=== PATIENT | male | born 1980 | race African-American/Black ===

== ENCOUNTER 2016-11-18 23:47 | Emergency (ER) | payer MEDICAID ==
[~2016-11-18] VITALS: Ht 177.8 cm; Wt 80.0 kg
[2016-11-19] MEDS ORDERED: ONDANSETRON 4MG ODT PO STA (08:29)
[2016-11-19] MEDS ORDERED: DICYCLOMINE 10 MG/5 ML ORAL SYR PO STA (08:29)
[2016-11-19 08:52] LABS: BASOPHILS % 0.2 % (0.0-2.0); HEMATOCRIT. 47.1 % (42.0-52.0); HEMOGLOBIN. 15.9 g/dL (14.0-18.0); LYMPHOCYTES % 10.1 % (20.0-50.0); MEAN CORPUSCULAR HEMOGLOBIN 28.9 pg (28.0-32.0); MEAN CORPUSCULAR VOLUME 85.5 fL (80.0-94.0); MEAN PLATELET VOLUME 9.2 fl (7.4-10.4); MONOCYTES % 2.5 % (2.0-8.0); NEUTROPHILS % 87.2 % (40.0-76.0); PLATELET 184 x1000/uL (130-400); RED BLOOD CELL COUNT 5.51 mill/uL (4.7-6.1); RED CELL DISTRIBUTION WIDTH 13.7 % (11.6-14.6)
[2016-11-19 08:59] LABS: CHLORIDE 101 mEq/L (98-107)
[2016-11-19 09:00] LABS: INR 1.1; PROTHROMBIN TIME 11.1 sec
[2016-11-19 09:09] LABS: CARBON DIOXIDE 11 mEq/L (21-32)
[2016-11-19 09:41] LABS: CLARITY URINE CLEAR (CLEAR); COLOR URINE YELLOW (YELLOW); GLUCOSE URINE 3+ (NEGATIVE); KETONES URINE 4+ (NEGATIVE); LEUKOCYTE ESTERASE URINE NEGATIVE (NEGATIVE); NITRITE URINE NEGATIVE (NEGATIVE); OCCULT BLOOD URINE 2+ (NEGATIVE); PROTEIN URINE 1+ (NEGATIVE); SPECIFIC GRAVITY URINE 1.029 (1.005-1.030); UROBILINOGEN URINE 0.2 E.U./dL (0.2-1.0)
[2016-11-19 10:00] VITALS: BP 124/88
[2016-11-19] MEDS ORDERED: VISCOUS LIDOCAINE 2% 15 ML UDC PO STA (10:07)
[2016-11-19] MEDS ORDERED: MAGNESIUM/ALUMINUM HYDROXIDE/SIMETHICONE 30ML UDC PO ONE (10:15)
[2016-11-19] MEDS ORDERED: METOCLOPRAMIDE HCL 10MG TABLET PO ONE (10:45)
== END 2016-11-19 11:36 | disposition home or self-care (01) ==
LOC: ER 23:51
DX: R10.9 Unspecified abdominal pain (principal); E11.9 Type 2 diabetes mellitus without complications; J45.909 Unspecified asthma, uncomplicated; R11.2 Nausea with vomiting, unspecified
CPT/HCPCS: 36415; 80053; 81001; 83690; 85025; 85610; 99284; Q0162; J8597

== ENCOUNTER 2018-03-19 04:21 | Inpatient (IN) | payer MEDICAID ==
[2018-03-19] VITALS (13 sets, daily range): BP systolic 93–140; BP diastolic 59–93
[~2018-03-19] VITALS: Ht 180.3 cm; Wt 68.1 kg
[2018-03-19] MEDS ORDERED: SODIUM CHLORIDE 0.9% 1,000 ML IV ONE ×2 (04:43→07:00)
[2018-03-19] MEDS ORDERED: ONDANSETRON HCL 4MG/2ML INJ IV ONE ×3 (04:45→07:15)
[2018-03-19 05:51] LABS: BASOPHILS % 0.2 % (0.0-2.0); HEMATOCRIT. 53.6 % (42.0-52.0); HEMOGLOBIN. 17.4 g/dL (14.0-18.0); LYMPHOCYTES % 11.3 % (20.0-50.0); MEAN CORPUSCULAR HEMOGLOBIN 28.5 pg (28.0-32.0); MEAN CORPUSCULAR VOLUME 87.8 fL (80.0-94.0); NEUTROPHILS % 86.5 % (40.0-76.0); PLATELET 158 x1000/uL (130-400); RED BLOOD CELL COUNT 6.11 mill/uL (4.7-6.1); RED CELL DISTRIBUTION WIDTH 14.6 % (11.6-14.6)
[2018-03-19 06:24] LABS: CHLORIDE 98 mEq/L (98-107)
[2018-03-19 06:28] LABS: AMYLASE 94 IU/L (25-115)
[2018-03-19] MEDS ORDERED: INSULIN REGULAR (DRIP) 100 UNITS in SODIUM CHLORIDE 0.9% 99 ML IV SCH (07:00)
[2018-03-19] MEDS ORDERED: SODIUM CHLORIDE 0.9% 1,000 ML IV SCH (07:38)
[2018-03-19 07:43] LABS: CLARITY URINE CLEAR (CLEAR); COLOR URINE YELLOW (YELLOW); KETONES URINE 4+ (NEGATIVE); LEUKOCYTE ESTERASE URINE NEGATIVE (NEGATIVE); NITRITE URINE NEGATIVE (NEGATIVE); OCCULT BLOOD URINE 2+ (NEGATIVE); PROTEIN URINE 1+ (NEGATIVE); SPECIFIC GRAVITY URINE 1.029 (1.005-1.030); UROBILINOGEN URINE 0.2 E.U./dL (0.2-1.0)
[2018-03-19] MEDS ORDERED: LORAZEPAM 0.5MG TABLET PO PRN (07:45)
[2018-03-19] MEDS ORDERED: CLONIDINE 0.1MG TABLET PO PRN (07:45)
[2018-03-19] MEDS ORDERED: ACETAMINOPHEN 325MG TABLET PO PRN (07:45)
[2018-03-19] MEDS ORDERED: IPRATROPIUM/ALBUTEROL 0.5-3(2.5)MG/3ML NEB INH PRN (07:45)
[2018-03-19] MEDS ORDERED: MAGNESIUM/ALUMINUM HYDROXIDE/SIMETHICONE 30ML UDC PO PRN (07:45)
[2018-03-19] MEDS ORDERED: GUAIFENESIN 200MG/10ML SUGAR FREE UDC PO PRN (07:45)
[2018-03-19] MEDS ORDERED: DOCUSATE SODIUM 100MG CAPSULE PO PRN (07:45)
[2018-03-19] MEDS ORDERED: ONDANSETRON HCL 4MG/2ML INJ IV PRN (07:45)
[2018-03-19 11:13] LABS: CHLORIDE 102 mEq/L (98-107)
[2018-03-19] MEDS ORDERED: KETOROLAC 15MG/ML VIAL IV PRN (16:30)
[2018-03-19] MEDS ORDERED: INSULIN REGULAR (DRIP) 100 UNITS in SODIUM CHLORIDE 0.9% 100 ML IV SCH (20:00)
[2018-03-19] MEDS: BLOOD SUGAR DIAGNOSTIC STRIP TEST SCH ×4 (20:00→23:55)
[2018-03-19] MEDS ORDERED: DEXTROSE 50% WATER 50ML SYRINGE IV PRN ×2 (20:00)
[2018-03-19] MEDS ORDERED: ZOLPIDEM TARTRATE 5MG TABLET PO PRN (21:00)
[2018-03-19] MEDS ORDERED: NA PHOS,M-B/NA PHOS,DI-BA ENEMA 118ML PR PRN (21:00)
[2018-03-19] MEDS: PANTOPRAZOLE SODIUM 40 MG/VIAL IV SCH (21:57)
[2018-03-19 23:15] LABS: CHLORIDE 109 mEq/L (98-107)
[2018-03-19 23:22] LABS: PHOSPHORUS 1.9 mg/dL (2.5-4.9)
[2018-03-20] VITALS (20 sets, daily range): BP systolic 103–124; BP diastolic 59–79
[2018-03-20] MEDS: BLOOD SUGAR DIAGNOSTIC STRIP TEST SCH ×9 (00:09→08:00)
[2018-03-20] MEDS: DEXT 5%/0.9% NACL KCL 20MEQ/L 1,000 ML IV SCH ×2 (00:15→03:40)
[2018-03-20] MEDS ORDERED: SODIUM PHOS,M-BASIC-D-BASIC 15 MM in DEXT 5% WATER 245 ML IV NR (01:00)
[2018-03-20] MEDS: PANTOPRAZOLE SODIUM 40 MG/VIAL IV SCH (08:45)
[2018-03-20] MEDS ORDERED: INSULIN LISPRO 100 UNITS/ML SUBCUT SCH (09:45)
[2018-03-20] MEDS ORDERED: INSULIN GLARGINE UD 100 UNITS/ML SYR SUBCUT SCH (10:00)
[2018-03-20 10:54] LABS: *AMPHETAMINES SCREEN URINE PRESUMTIVE POSITIVE (NEGATIVE); *BARBITURATES SCREEN URINE NEGATIVE (NEGATIVE); *COCAINE SCREEN URINE NEGATIVE (NEGATIVE); CANNABINOID URINE SCREEN NEGATIVE (NEGATIVE); METHADONE URINE SCREEN NEGATIVE (NEGATIVE)
[2018-03-20 10:56] LABS: *BENZODIAZEPINES SCREEN URINE NEGATIVE (NEGATIVE)
[2018-03-20 10:57] LABS: PHENCYCLIDINE URINE SCREEN NEGATIVE (NEGATIVE)
[2018-03-20 11:08] LABS: OPIATES URINE SCREEN NEGATIVE (NEGATIVE)
== END 2018-03-20 10:30 | disposition left against medical advice (07) | DRG 420 ==
LOC: ER 04:21 → EDBEDREQTM 06:41 → EDBEDREQSVC 06:41 → EDBEDREQ 06:41 → CANRESERV 06:56 → ENRESERV 06:56 → EDBEDREQTM 06:58 → EDBEDREQSVC 06:58 → EDBEDREQ 06:59 → CVICU 07:00 → CANRESERV 12:22 → ENRESERV 12:22 → CANRESERV 15:22 → ENRESERV 15:22
PROVIDERS: ADMIT Internal Medicine; ATTEND Internal Medicine
DX: E11.10 Type 2 diabetes mellitus with ketoacidosis without coma (principal); L97.818 Non-pressure chronic ulcer of other part of right lower leg with other specified severity; D72.829 Elevated white blood cell count, unspecified; F31.9 Bipolar disorder, unspecified; Z53.21 Procedure and treatment not carried out due to patient leaving prior to being seen by health care provider; J45.909 Unspecified asthma, uncomplicated; R32 Unspecified urinary incontinence; X58.XXXA Exposure to other specified factors, initial encounter; Y93.51 Activity, roller skating (inline) and skateboarding; Y92.89 Other specified places as the place of occurrence of the external cause; Y99.8 Other external cause status; Z83.3 Family history of diabetes mellitus; Z91.11 Patient's noncompliance with dietary regimen; Z91.19 Patient's noncompliance with other medical treatment and regimen; Z59.0 Homelessness
CPT/HCPCS: 36415; 71045; 80048; 80305; 82010; 82150; 82962; 83036; 84100; 93005; 96361; 96374; 96375; 96376; 99285; C9113; J1815; J2405; J3490; J7030; J7050; J7060

== ENCOUNTER 2018-03-22 16:00 | Inpatient (IN) | payer MEDICAID ==
[~2018-03-22] VITALS: Ht 180.3 cm; Wt 60.8 kg
[2018-03-22] MEDS ORDERED: ONDANSETRON HCL 4MG/2ML INJ IV STA (16:31)
[2018-03-22] MEDS ORDERED: IPRATROPIUM BROMIDE (0.02%) 0.5MG/2.5ML NEB HHN STA (16:31)
[2018-03-22] MEDS ORDERED: ALBUTEROL (0.083%) 2.5MG/3ML NEB HHN STA (16:31)
[2018-03-22] MEDS ORDERED: SODIUM CHLORIDE 0.9% 1,000 ML IV ONE (16:31)
[2018-03-22] MEDS ORDERED: ASPIRIN 81MG TABLET PO ONE (16:45)
[2018-03-22] MEDS ORDERED: LORAZEPAM 2MG/ML CPJ IM ONE (17:30)
[2018-03-22 17:49] LABS: BASOPHILS % 0.2 % (0.0-2.0); HEMATOCRIT. 52.1 % (42.0-52.0); HEMOGLOBIN. 16.6 g/dL (14.0-18.0); LYMPHOCYTES % 13.5 % (20.0-50.0); MEAN CORPUSCULAR HEMOGLOBIN 27.9 pg (28.0-32.0); MEAN CORPUSCULAR VOLUME 87.5 fL (80.0-94.0); MONOCYTES % 3.5 % (2.0-8.0); NEUTROPHILS % 82.8 % (40.0-76.0); PLATELET 255 x1000/uL (130-400); RED BLOOD CELL COUNT 5.96 mill/uL (4.7-6.1); RED CELL DISTRIBUTION WIDTH 15.4 % (11.6-14.6)
[2018-03-22 17:50] LABS: INR 1.1; PROTHROMBIN TIME 10.7 sec (9.1-11.1)
[2018-03-22 17:55] LABS: CHLORIDE 95 mEq/L (98-107)
[2018-03-22] MEDS ORDERED: ONDANSETRON HCL 4MG/2ML INJ IV ONE (18:30)
[2018-03-22] MEDS ORDERED: INSULIN REGULAR (DRIP) 100 UNITS in SODIUM CHLORIDE 0.9% 100 ML IV ONE (18:45)
[2018-03-22] MEDS ORDERED: PANTOPRAZOLE SODIUM 40 MG/VIAL IV ONE (19:00)
[2018-03-22 19:29] LABS: BETA HYDROXYBUTYRATE 14.4 mMol/L (0.0-0.3)
[2018-03-22] MEDS ORDERED: INSULIN REGULAR (DRIP) 100 UNITS in SODIUM CHLORIDE 0.9% 100 ML IV SCH (19:45)
[2018-03-22] MEDS ORDERED: DOCUSATE SODIUM 100MG CAPSULE PO PRN (21:15)
[2018-03-22] MEDS ORDERED: DEXTROSE 50% WATER 50ML SYRINGE IV PRN ×2 (21:15)
[2018-03-22] MEDS ORDERED: ONDANSETRON HCL 4MG/2ML INJ IV PRN ×2 (21:15)
[2018-03-22] MEDS ORDERED: NA PHOS,M-B/NA PHOS,DI-BA ENEMA 118ML PR PRN (21:15)
[2018-03-22] MEDS ORDERED: METOCLOPRAMIDE HCL 5MG TABLET PO PRN (21:15)
[2018-03-22] MEDS ORDERED: GUAIFENESIN 200MG/10ML SUGAR FREE UDC PO PRN (21:15)
[2018-03-22] MEDS ORDERED: HYDROCODONE/ACETAMINOPHEN 10/325MG TABLET PO PRN (21:15)
[2018-03-22] MEDS ORDERED: ACETAMINOPHEN 650MG SUPP PR PRN (21:15)
[2018-03-22] MEDS ORDERED: MORPHINE SULFATE 4 MG/ML CPJ (NOT FOR IM USE) IV PRN (21:15)
[2018-03-22] MEDS ORDERED: ACETAMINOPHEN 650MG/20.3ML UDC GT PRN (21:15)
[2018-03-22] MEDS ORDERED: CLONIDINE 0.1MG TABLET PO PRN (21:15)
[2018-03-22] MEDS ORDERED: HYDROCODONE/ACETAMINOPHEN 5/325MG TABLET PO PRN (21:15)
[2018-03-22] MEDS ORDERED: IPRATROPIUM/ALBUTEROL 0.5-3(2.5)MG/3ML NEB INH PRN (21:15)
[2018-03-22] MEDS ORDERED: MAGNESIUM/ALUMINUM HYDROXIDE/SIMETHICONE 30ML UDC PO PRN (21:15)
[2018-03-22] MEDS ORDERED: ACETAMINOPHEN 325MG TABLET PO PRN (21:15)
[2018-03-23] VITALS (15 sets, daily range): BP systolic 98–134; BP diastolic 60–94
[2018-03-23 00:01] LABS: CREATINE KINASE 166 IU/L (39-308); CREATINE KINASE MB FRACTION 6.1 ng/mL (0.5-3.6)
[2018-03-23 01:23] LABS: CLARITY URINE CLOUDY (CLEAR); COLOR URINE YELLOW (YELLOW); KETONES URINE 4+ (NEGATIVE); LEUKOCYTE ESTERASE URINE NEGATIVE (NEGATIVE); NITRITE URINE NEGATIVE (NEGATIVE); OCCULT BLOOD URINE 2+ (NEGATIVE); PROTEIN URINE 2+ (NEGATIVE); SPECIFIC GRAVITY URINE 1.026 (1.005-1.030); UROBILINOGEN URINE 0.2 E.U./dL (0.2-1.0)
[2018-03-23 02:09] LABS: *AMPHETAMINES SCREEN URINE NEGATIVE (NEGATIVE); *BARBITURATES SCREEN URINE NEGATIVE (NEGATIVE); *BENZODIAZEPINES SCREEN URINE NEGATIVE (NEGATIVE)
[2018-03-23 02:10] LABS: *COCAINE SCREEN URINE NEGATIVE (NEGATIVE); CANNABINOID URINE SCREEN NEGATIVE (NEGATIVE); METHADONE URINE SCREEN NEGATIVE (NEGATIVE); OPIATES URINE SCREEN NEGATIVE (NEGATIVE); PHENCYCLIDINE URINE SCREEN NEGATIVE (NEGATIVE)
[2018-03-23 06:23] LABS: CREATINE KINASE 140 IU/L (39-308); CREATINE KINASE MB FRACTION 5.3 ng/mL (0.5-3.6)
[2018-03-23 08:32] LABS: BASOPHILS % 0.4 % (0.0-2.0); HEMATOCRIT. 51.1 % (42.0-52.0); HEMOGLOBIN. 16.7 g/dL (14.0-18.0); LYMPHOCYTES % 9.6 % (20.0-50.0); MEAN CORPUSCULAR HEMOGLOBIN 27.9 pg (28.0-32.0); MEAN CORPUSCULAR VOLUME 85.3 fL (80.0-94.0); MEAN PLATELET VOLUME 10.5 fl (7.4-10.4); MONOCYTES % 7.7 % (2.0-8.0); NEUTROPHILS % 82.3 % (40.0-76.0); PLATELET 216 x1000/uL (130-400); RED BLOOD CELL COUNT 5.99 mill/uL (4.7-6.1); RED CELL DISTRIBUTION WIDTH 14.7 % (11.6-14.6)
[2018-03-23] MEDS ORDERED: SODIUM BICARBONATE 50 MEQ in DEXTROSE 5% WATER 1,000 ML IV SCH ×2 (08:45→14:00)
[2018-03-23 09:02] LABS: BG BASE EXCESS -10.2 mmol/L (-2.0-2.0); BG CARBOXYHEMOGLOBIN 0.2 % (0.5-1.5); BG DEOXYHEMOGLOBIN 1.1 % (0.0-5.0); BG FRACTION INSPIRED OXYGEN 28; BG HCO3 ACT 14.9 mmol/L (22.0-26.0); BG METHEMOGLOBIN 0.4 % (0.0-1.5); BG OXYGEN SATURATION 98.9 % (92.0-98.5); BG OXYHEMOGLOBIN 98.3 % (94.0-97.0); BG PCO2 31.2 mmHg (35.0-45.0); BG PH 7.296 (7.350-7.450); BG PO2 149.3 mmHg (75.0-100.0); BG SAMPLE SITE RIGHT BRACHIAL; BG TOTAL HEMOGLOBIN 15.9 g/dL (12.0-18.0); BG VENT MODE NASAL CANNULA
[2018-03-23 10:40] LABS: CHLORIDE 109 mEq/L (98-107)
[2018-03-23 10:46] LABS: BETA HYDROXYBUTYRATE 5.5 mMol/L (0.0-0.3)
[2018-03-23] MEDS ORDERED: INSULIN REGULAR (DRIP) 100 UNITS in SODIUM CHLORIDE 0.9% 99 ML IV PRN ×4 (13:00)
[2018-03-23] MEDS: BLOOD SUGAR DIAGNOSTIC STRIP TEST SCH ×7 (13:20→19:12)
[2018-03-23] MEDS: CEFTRIAXONE 1 G PREMIX 50 ML IV SCH (13:29)
[2018-03-23 16:26] LABS: CHLORIDE 109 mEq/L (98-107)
[2018-03-23] MEDS ORDERED: SODIUM BICARBONATE 8.4% 1 MEQ/ML 50ML SYR IV NR (18:00)
[2018-03-23 18:59] LABS: CHLORIDE 111 mEq/L (98-107)
[2018-03-23 19:09] LABS: BETA HYDROXYBUTYRATE 0.2 mMol/L (0.0-0.3)
[2018-03-23 19:13] LABS: PHOSPHORUS 0.3 mg/dL (2.5-4.9)
[2018-03-23] MEDS ORDERED: DEXTROSE 50% WATER 50ML SYRINGE IV PRN (21:30)
[2018-03-23] MEDS: POTASSIUM PHOS,M-BASIC-D-BASIC 20 MMOL in DEXT 5% WATER 243.3333 ML IV SCH (22:41)
[2018-03-24] VITALS (24 sets, daily range): BP systolic 85–127; BP diastolic 45–85
[2018-03-24] MEDS ORDERED: SODIUM CHLORIDE 0.45% 1,000 ML IV SCH
[2018-03-24] MEDS: POTASSIUM PHOS,M-BASIC-D-BASIC 20 MMOL in DEXT 5% WATER 243.3333 ML IV SCH (02:08)
[2018-03-24 05:41] LABS: BASOPHILS % 0.1 % (0.0-2.0); EOSINOPHILS % 0.2 % (0.0-5.0); HEMATOCRIT. 42.3 % (42.0-52.0); HEMOGLOBIN. 14.3 g/dL (14.0-18.0); LYMPHOCYTES % 19.3 % (20.0-50.0); MEAN CORPUSCULAR HEMOGLOBIN 28.2 pg (28.0-32.0); MEAN CORPUSCULAR VOLUME 83.7 fL (80.0-94.0); MEAN PLATELET VOLUME 9.4 fl (7.4-10.4); MONOCYTES % 6.8 % (2.0-8.0); NEUTROPHILS % 73.6 % (40.0-76.0); PLATELET 172 x1000/uL (130-400); RED BLOOD CELL COUNT 5.06 mill/uL (4.7-6.1); RED CELL DISTRIBUTION WIDTH 14.3 % (11.6-14.6)
[2018-03-24 06:05] LABS: CHLORIDE 98 mEq/L (98-107)
[2018-03-24 06:08] LABS: BETA HYDROXYBUTYRATE 5.6 mMol/L (0.0-0.3); PHOSPHORUS 2.9 mg/dL (2.5-4.9)
[2018-03-24] MEDS: BLOOD SUGAR DIAGNOSTIC STRIP TEST SCH ×4 (06:30→21:00)
[2018-03-24] MEDS: INSULIN LISPRO 100 UNITS/ML SUBCUT SCH ×4 (07:17→21:27)
[2018-03-24] MEDS ORDERED: INSULIN GLARGINE UD 100 UNITS/ML SYR SUBCUT SCH ×2 (11:00→22:00)
[2018-03-24] MEDS ORDERED: INSULIN REGULAR (HUMULIN R) 300UNITS/3ML SUBCUT NR (12:15)
[2018-03-24] MEDS ORDERED: SODIUM CHLORIDE 0.9% INJ 3ML FLUSH IVF SCH (12:15)
[2018-03-24] MEDS: CEFTRIAXONE 1 G PREMIX 50 ML IV SCH (14:16)
[2018-03-25] VITALS (12 sets, daily range): BP systolic 92–134; BP diastolic 49–74
[2018-03-25 05:57] LABS: BASOPHILS % 0.2 % (0.0-2.0); EOSINOPHILS % 1.1 % (0.0-5.0); HEMATOCRIT. 37.5 % (42.0-52.0); HEMOGLOBIN. 12.9 g/dL (14.0-18.0); LYMPHOCYTES % 47.2 % (20.0-50.0); MEAN CORPUSCULAR HEMOGLOBIN 28.3 pg (28.0-32.0); MEAN CORPUSCULAR VOLUME 82.1 fL (80.0-94.0); MEAN PLATELET VOLUME 9.2 fl (7.4-10.4); MONOCYTES % 6.3 % (2.0-8.0); NEUTROPHILS % 45.2 % (40.0-76.0); PLATELET 148 x1000/uL (130-400); RED BLOOD CELL COUNT 4.57 mill/uL (4.7-6.1); RED CELL DISTRIBUTION WIDTH 13.9 % (11.6-14.6)
[2018-03-25] MEDS: INSULIN LISPRO 100 UNITS/ML SUBCUT SCH (06:20)
[2018-03-25] MEDS: BLOOD SUGAR DIAGNOSTIC STRIP TEST SCH (06:20)
[2018-03-25 06:36] LABS: CHLORIDE 98 mEq/L (98-107)
[2018-03-25 06:42] LABS: BETA HYDROXYBUTYRATE 0.5 mMol/L (0.0-0.3)
[2018-03-25] MEDS ORDERED: INSULIN GLARGINE UD 100 UNITS/ML SYR SUBCUT ONE (07:00)
[2018-03-25] MEDS ORDERED: INSULIN REGULAR (HUMULIN R) UD 100 UNITS/ML SYR SUBCUT SCH (08:00)
[2018-03-25] MEDS ORDERED: POTASSIUM PHOS,M-BASIC-D-BASIC 15 MMOL in DEXT 5% WATER 245 ML IV SCH (08:00)
[2018-03-25] MEDS ORDERED: INSULIN GLARGINE UD 100 UNITS/ML SYR SUBCUT SCH (10:00)
[2018-03-26 13:11] LABS: *CREATININE RANDOM URINE 135.3 mg/dL (Not Estab.); MICROALBUMIN RANDOM URINE 191.8 ug/mL (Not Estab.)
== END 2018-03-25 13:15 | disposition home or self-care (01) | DRG 720 ==
LOC: ER 16:00 → MICUSO 19:01 → EDBEDREQ 19:04 → ENRESERV 03-23 00:16 → CANRESERV 03-23 00:16 → ENRESERV 03-23 10:30 → 6EST 03-25 11:12
PROVIDERS: ADMIT Family Medicine; ATTEND Family Medicine
DX: A41.9 Sepsis, unspecified organism (principal); E10.10 Type 1 diabetes mellitus with ketoacidosis without coma; K92.2 Gastrointestinal hemorrhage, unspecified; L97.819 Non-pressure chronic ulcer of other part of right lower leg with unspecified severity; E86.0 Dehydration; N39.0 Urinary tract infection, site not specified; D64.9 Anemia, unspecified; K30 Functional dyspepsia; K59.00 Constipation, unspecified; X58.XXXD Exposure to other specified factors, subsequent encounter; B95.1 Streptococcus, group B, as the cause of diseases classified elsewhere; F31.9 Bipolar disorder, unspecified; J45.909 Unspecified asthma, uncomplicated; Z59.0 Homelessness; Z83.3 Family history of diabetes mellitus; Z87.891 Personal history of nicotine dependence; Z91.14 Patient's other noncompliance with medication regimen; Z91.19 Patient's noncompliance with other medical treatment and regimen
CPT/HCPCS: 36415; 36600; 71045; 80048; 80051; 80305; 82010; 82043; 82375; 82550; 82553; 82570; 82805; 82962; 83605; 83735; 84100; 84484; 86850; 86900; 87077; 93005; 94640; 96361; 96374; 96375; 99285; C9113; J0696; J1815; J2060; J2405; J3490; J7030; J7050; J7060; J7070; J7611; A4315